=== PATIENT | female | born 1990 | race Asian ===

== ENCOUNTER 2017-05-20 21:30 | Emergency (ER) | payer MEDICAID ==
[~2017-05-20] VITALS: Ht 154.9 cm; Wt 54.5 kg
[2017-05-20 22:06] LABS: BASOPHILS % (AUTO) 0.5 % (0.0-2.0); EOSINOPHILS % (AUTO) 0.9 % (1.0-6.0); HEMATOCRIT 39.6 % (36-46); HEMOGLOBIN 13.4 g/dL (12.0-16.0); LYMPHOCYTES # (AUTO) 3.4 K/uL (1.0-4.8); LYMPHOCYTES % (AUTO) 33.9 % (22.0-44.0); MEAN CORPUSCULAR HEMOGLOBIN 28.6 pg (26.0-34.0); MEAN CORPUSCULAR HGB CONC 33.8 G/dL (31.0-37.0); MEAN CORPUSCULAR VOLUME 85 fL (80-100); MONOCYTES # (AUTO) 0.9 K/uL (0.1-1.0); MONOCYTES % (AUTO) 8.8 % (2.0-9.0); NEUTROPHILS # (AUTO) 5.6 K/uL (1.8-7.7); NEUTROPHILS % (AUTO) 55.9 % (40.0-70.0); PLATELET COUNT (AUTO) 354 K/uL (150-450); RED BLOOD CELL COUNT(AUTO) 4.68 MIL/uL (4.00-5.20); RED CELL DISTRIBUTION WIDTH 13.4 % (11.5-14.5)
[2017-05-20 22:10] LABS: APPEARANCE,URINE CLOUDY (CLEAR); GLUCOSE, URINE (UA) NEGATIVE (NEGATIVE); KETONES,URINE NEGATIVE (NEGATIVE); LEUKOCYTE ESTERASE ,URINE LARGE (NEGATIVE); OCCULT BLOOD,URINE TRACE (NEGATIVE); PROTEIN,URINE POS 1+ (NEGATIVE)
[2017-05-20 22:14] LABS: ANION GAP 8 mmol/L (8-16); CALCIUM, TOTAL 8.9 mg/dL (8.8-10.5); CARBON DIOXIDE 26 mmol/L (22-29); CHLORIDE 104 mmol/L (98-107); CREATININE 0.91 mg/dL (0.60-1.30); GLOMERULAR FILTR. RATE CALC > 60 mL/min (>60); POTASSIUM 3.4 mmol/L (3.5-5.1); SODIUM SERUM 138 mmol/L (136-145); UREA NITROGEN, BLOOD 10 mg/dL (7-18)
[2017-05-20 22:17] LABS: ADD UA MICROSCOPIC YES
[2017-05-20 22:20] LABS: ALANINE AMINOTRANSFERASE 20 U/L (12-78); ALBUMIN 3.6 g/dL (3.4-5.0); ASPARTATE AMINOTRANSFERASE 15 U/L (15-37); BILIRUBIN,TOTAL 0.4 mg/dL (0.1-1.0); TOTAL PROTEIN, SERUM 8.2 g/dL (6.4-8.2)
[2017-05-20 22:28] LABS: SQUAMOUS EPITHELIAL CELL,UR Few /LPF (None Seen); WBC,URINE 26-50 /HPF (0-5)
[2017-05-20 22:29] LABS: URINALYSIS COMMENT Many Trich. seen.
[2017-05-20 23:17] VITALS: BP 121/56
[2017-05-21] MEDS ORDERED: ANTIBIOTIC PO (13:02)
== END 2017-05-20 23:40 | disposition home or self-care (01) ==
LOC: EMS 21:32
DX: N39.0 Urinary tract infection, site not specified (principal); R11.2 Nausea with vomiting, unspecified; R19.7 Diarrhea, unspecified
CPT/HCPCS: 87086; 99284

== ENCOUNTER 2017-05-21 12:56 | Emergency (ER) | payer MEDICAID ==
[~2017-05-21] VITALS: Ht 154.9 cm; Wt 55.0 kg
[2017-05-21] MEDS ORDERED: ANTIBIOTIC PO (13:02)
[2017-05-21] MEDS ORDERED: SODIUM CHLORIDE 0.9% 1,000 ML IV ONE ×2 (14:45→16:30)
[2017-05-21] MEDS ORDERED: ONDANSETRON HCL 4 MG/2 ML VIAL IVP ONE ×2 (14:45→18:00)
[2017-05-21] MEDS ORDERED: CefTRIAXone 1 GM/DEXTROSE 50 ML IV ONE (14:45)
[2017-05-21] MEDS ORDERED: FAMOTIDINE 20 MG TABLET PO ONE (16:30)
[2017-05-21] MEDS ORDERED: HYDROmorphone 2 MG/ML SYRINGE IVP ONE (18:00)
[2017-05-21 18:42] VITALS: BP 134/85
== END 2017-05-21 18:59 | disposition home or self-care (01) ==
LOC: EMS 12:59
DX: N39.0 Urinary tract infection, site not specified (principal); E86.0 Dehydration
CPT/HCPCS: 96361; 96365; 96375; 96376; 99284; J0696; J1170; J2405; J7030

== ENCOUNTER 2017-06-25 15:00 | Emergency (ER) | payer MEDICAID ==
[~2017-06-25] VITALS: Ht 154.9 cm; Wt 54.5 kg
[~2017-06-25 15:00] MED LIST: ANTIBIOTIC PO
[2017-06-25] MEDS ORDERED: SODIUM CHLORIDE 0.9% 1,000 ML IV ONE (16:45)
[2017-06-25] MEDS ORDERED: MORPHINE SULFATE 4 MG/ML SYRINGE IVP ONE (16:45)
[2017-06-25] MEDS ORDERED: ONDANSETRON HCL 4 MG/2 ML VIAL IVP ONE (16:45)
[2017-06-25 17:15] LABS: APPEARANCE,URINE TURBID (CLEAR); GLUCOSE, URINE (UA) NEGATIVE (NEGATIVE); KETONES,URINE NEGATIVE (NEGATIVE); LEUKOCYTE ESTERASE ,URINE LARGE (NEGATIVE); OCCULT BLOOD,URINE SMALL (NEGATIVE); PROTEIN,URINE POS 1+ (NEGATIVE)
[2017-06-25 17:22] LABS: PROTHROMBIN TIME 10.5 SEC (9.4-11.6)
[2017-06-25 17:26] LABS: ANION GAP 7 mmol/L (8-16); CALCIUM, TOTAL 8.6 mg/dL (8.8-10.5); CARBON DIOXIDE 26 mmol/L (22-29); CHLORIDE 104 mmol/L (98-107); CREATININE 0.94 mg/dL (0.60-1.30); GLOMERULAR FILTR. RATE CALC > 60 mL/min (>60); POTASSIUM 3.5 mmol/L (3.5-5.1); SODIUM SERUM 137 mmol/L (136-145); UREA NITROGEN, BLOOD 13 mg/dL (7-18)
[2017-06-25 17:26] LABS: RBC,URINE 0-2 /HPF (0-2); SQUAMOUS EPITHELIAL CELL,UR Moderate /LPF (None Seen); URINALYSIS COMMENT Few Trichomonas seen
[2017-06-25 17:34] LABS: ALANINE AMINOTRANSFERASE 24 U/L (12-78); ALBUMIN 3.7 g/dL (3.4-5.0); ASPARTATE AMINOTRANSFERASE 20 U/L (15-37); BILIRUBIN,TOTAL 0.5 mg/dL (0.1-1.0); TOTAL PROTEIN, SERUM 8.5 g/dL (6.4-8.2)
[2017-06-25 17:54] LABS: BASOPHILS % (AUTO) 0.8 % (0.0-2.0); EOSINOPHILS % (AUTO) 0.7 % (1.0-6.0); HEMATOCRIT 40.1 % (36-46); HEMOGLOBIN 13.7 g/dL (12.0-16.0); LYMPHOCYTES # (AUTO) 3.2 K/uL (1.0-4.8); LYMPHOCYTES % (AUTO) 31.8 % (22.0-44.0); MEAN CORPUSCULAR HGB CONC 34.1 G/dL (31.0-37.0); MEAN CORPUSCULAR VOLUME 85 fL (80-100); MONOCYTES # (AUTO) 0.6 K/uL (0.1-1.0); MONOCYTES % (AUTO) 5.8 % (2.0-9.0); NEUTROPHILS # (AUTO) 6.1 K/uL (1.8-7.7); NEUTROPHILS % (AUTO) 60.9 % (40.0-70.0); PLATELET COUNT (AUTO) 353 K/uL (150-450); RED BLOOD CELL COUNT(AUTO) 4.72 MIL/uL (4.00-5.20); RED CELL DISTRIBUTION WIDTH 13.5 % (11.5-14.5); WHITE BLOOD COUNT (AUTO) 10.1 K/uL (4.5-11.0)
[2017-06-25 20:10] VITALS: BP 122/71
== END 2017-06-25 20:12 | disposition home or self-care (01) ==
LOC: EMS 15:03
DX: A59.9 Trichomoniasis, unspecified (principal)
CPT/HCPCS: 36415; 76700; 80053; 81001; 83690; 84703; 85025; 85610; 85730; 87086; 96361; 96374; 96375; 99285; J2270; J2405; J7030

== ENCOUNTER 2023-09-02 10:38 | Emergency (ER) | payer MEDICAID ==
[~2023-09-02] VITALS: Ht 157.5 cm; Wt 59.1 kg
[2023-09-02 10:42] VITALS: TEMP 98.8
[2023-09-02] MEDS ORDERED: PredniSONE 20 MG TABLET PO ONE (12:30)
[2023-09-02 13:00] VITALS: BP 140/87; PULSE 80; RESP 12
[2023-09-02] MEDS ORDERED: PRED-554 PO (13:08)
== END 2023-09-02 13:17 | disposition home or self-care (01) ==
LOC: EMS 10:38
DX: L50.0 Allergic urticaria (principal); T78.1XXA Other adverse food reactions, not elsewhere classified, initial encounter; X58.XXXA Exposure to other specified factors, initial encounter
CPT/HCPCS: 99283; J7512